=== PATIENT | female | born 1990 | race Caucasian/White ===

== ENCOUNTER 2018-06-12 03:26 | Emergency (ER) | payer MEDICAID ==
[2018-06-12] MEDS ORDERED: NS 1,000 ML IV ONE (03:50)
[2018-06-12 04:11] LABS: PLATELET COUNT 233 10^3/uL (150-400)
--- NOTE | 2018-06-12 04:12 | EDPHY ---
H & P Stated Complaint: NAUSEA, DIZZY, "MAYBE MY BLOOD SUGAR", HEADACHE Time Seen by Provider: 06/12/18 03:45 HPI/ROS: Chief Complaint: Headache, nausea, lightheaded HPI: 28-year-old woman who normal state health woke this morning with a 5/10 headache. Patient states she felt very jittery ease of her blood sugars were low. She took some Advil and drank some water but then vomited once. She did ate some grapes. She continued to feel quite lightheaded and shaky so presented to the emergency department for further evaluation. No fevers or chills. She states her headache is much better now. She did have traveler's diarrhea 2 weeks ago but symptoms have since resolved. No abdominal pain. Last menstrual. Is now. No urinary urgency or frequency. No back pain. ROS: 10 systems were reviewed and were negative except those elements noted in the HPI. PMH: Denies Social History: No smoking, occasional alcohol, no recreational drug use Family History: non-contributory Physical Exam: Gen: Awake, Alert, No Distress HEENT: Nose: no rhinorrhea Eyes: PERRLA, EOMI Mouth: Moist mucosa Neck: Supple, no JVD Chest: nontender, lungs clear to auscultation Heart: S1, S2 normal, no murmur Abd: Soft, non-tender, no guarding Back: no CVA tenderness, no midline tenderness Ext: no edema, non-tender Skin: no rash Neuro: CN II-XII intact, Sensation grossly intact, Strength 5/5 in bilateral upper and lower extremities - Personal History LMP (Females 10-55): Now Current Tetanus Diphtheria and Acellular Pertussis (TDAP): Yes - Medical/Surgical History Hx Asthma: No Hx Chronic Respiratory Disease: No Hx Diabetes: No Hx Cardiac Disease: No Hx Renal Disease: No Hx Cirrhosis: No Hx Alcoholism: No Hx HIV/AIDS: No Hx Splenectomy or Spleen Trauma: No Other PMH: Migraine, kidney stones - Social History Smoking Status: Never smoked Constitutional: Initial Vital Signs Temperature (C) 36.6 C 06/12/18 03:31 Heart Rate 73 06/12/18 03:31 Respiratory Rate 17 06/12/18 03:31 Blood Pressure 128/89 H 06/12/18 03:31 O2 Sat (%) 98 06/12/18 03:31 O2 Delivery Mode Room Air Allergies/Adverse Reactions: Sulfa (Sulfonamide Antibiotics) Allergy (Verified 06/12/18 03:31) Medical Decision Making ED Course/Re-evaluation: Patient is improved after IV fluids. Vital signs are normal. Blood tests are normal. She is not . She has a benign exam. I think symptoms are consistent likely early viral illness. She is ambulating unassisted in the emergency department. Headache is resolved. Will discharge with follow-up with primary care physician. Supportive treatment with [id number] analgesia. Return for any concerns. - Data Points Laboratory Results: Laboratory Results 06/12/18 04:00 06/12/18 04:00 06/12/18 06/12/18 06/12/18 04:00 04:00 04:00 WBC 7.10 10^3/uL 10^3/uL (3.80-9.50) RBC 4.16 10^6/uL L 10^6/uL (4.18-5.33) Hgb 13.3 g/dL g/dL (12.6-16.3) Hct 38.5 % % (38.0-47.0) MCV 92.5 fL fL (81.5-99.8) MCH 32.0 pg pg (27.9-34.1) MCHC 34.5 g/dL g/dL (32.4-36.7) RDW 13.2 % % (11.5-15.2) Plt Count 233 10^3/uL 10^3/uL (150-400) MPV 10.3 fL fL (8.7-11.7) Neut % (Auto) 57.5 % % (39.3-74.2) Lymph % (Auto) 32.8 % % (15.0-45.0) [place] % (Auto) 8.0 % % (4.5-13.0) Eos % (Auto) 1.0 % % (0.6-7.6) Baso % (Auto) 0.6 % % (0.3-1.7) Nucleat RBC Rel Count 0.0 % % (0.0-0.2) Absolute Neuts (auto) 4.08 10^3/uL 10^3/uL (1.70-6.50) Absolute Lymphs (auto) 2.33 10^3/uL 10^3/uL (1.00-3.00) Absolute Monos (auto) 0.57 10^3/uL 10^3/uL (0.30-0.80) Absolute Eos (auto) 0.07 10^3/uL 10^3/uL (0.03-0.40) Absolute Basos (auto) 0.04 10^3/uL 10^3/uL (0.02-0.10) Absolute Nucleated RBC 0.00 10^3/uL 10^3/uL (0-0.01) Immature Gran % 0.1 % % (0.0-1.1) Immature Gran # 0.01 10^3/uL 10^3/uL (0.00-0.10) Sodium 138 mEq/L mEq/L (135-145) Potassium 3.8 mEq/L mEq/L (3.3-5.0) Chloride 106 mEq/L mEq/L (97-110) Carbon Dioxide 24 mEq/l mEq/l (22-31) Anion Gap 8 mEq/L mEq/L (6-14) BUN 9 mg/dL mg/dL (7-23) Creatinine 0.7 mg/dL mg/dL (0.6-1.0) Estimated GFR > 60 Glucose 120 mg/dL H mg/dL (70-100) Calcium 9.3 mg/dL mg/dL (8.5-10.4) Beta HCG, Qual NEGATIVE Medications Given: Discontinued Medications Sodium Chloride (Ns) 1,000 mls @ 0 mls/hr IV ONCE ONE; Wide Open PRN Reason: Protocol Stop: 06/12/18 03:51 Last Admin: 06/12/18 04:01 Dose: 1,000 mls Departure - Departure Disposition: Home, Routine, Self-Care Clinical Impression: Headache, Viral syndrome, Dehydration Condition: Good Instructions: Viral Syndrome (ED), Acute Headache (ED), Dehydration (ED) Additional Instructions: Alternate acetaminophen (1000 mg) with ibuprofen (400 mg) every 4 hours as needed for fevers, chills, aches or pain. Drink at least 8, 8 oz glasses of water a day. Follow up with primary care physician in 3-4 days if symptoms are not improving. Return to the emergency department for increasing headache, uncontrolled nausea vomiting, weakness, fainting, or any other concerns. Referrals: Angie Borjas MD [Medical Doctor] - As per Instructions
[2018-06-12 04:47] VITALS: BP 115/67
== END 2018-06-12 04:48 | disposition home or self-care (01) ==
DX: R51 Headache (principal); B34.9 Viral infection, unspecified; E86.0 Dehydration; R11.0 Nausea; R42 Dizziness and giddiness